=== PATIENT | male | born 1990 | race Two or more races ===

== ENCOUNTER → 2022-03-30 | Outpatient (CLI) | payer OTHER | END | disposition home or self-care (01) | LOC: LAB 01:45 | PROVIDERS: ATTEND Obstetrics & Gynecology | DX: Z20.828 Contact with and (suspected) exposure to other viral communicable diseases (principal); Z20.818 Contact with and (suspected) exposure to other bacterial communicable diseases ==

== ENCOUNTER 2022-04-05 11:41 | Emergency (ER) | payer OTHER ==
[~2022-04-05] VITALS: Ht 180.3 cm; Wt 110.7 kg
[2022-04-06] MEDS ORDERED: HUMALOG100 UNIT/2 SUBCUTANEO (13:22)
== END 2022-04-05 16:01 | disposition home or self-care (01) ==
LOC: ER 11:41
DX: R33.9 Retention of urine, unspecified (principal); Z91.013 Allergy to seafood; E11.9 Type 2 diabetes mellitus without complications

== ENCOUNTER 2022-04-06 13:16 | Emergency (ER) | payer OTHER ==
[~2022-04-06] VITALS: Ht 180.3 cm; Wt 110.7 kg
[2022-04-06] MEDS ORDERED: HUMALOG100 UNIT/2 SUBCUTANEO (13:22)
== END 2022-04-06 16:02 | disposition left against medical advice (07) ==
LOC: ER 13:16
DX: R33.9 Retention of urine, unspecified (principal); T83.9XXA Unspecified complication of genitourinary prosthetic device, implant and graft, initial encounter; Z91.013 Allergy to seafood; E11.9 Type 2 diabetes mellitus without complications; Z79.4 Long term (current) use of insulin